=== PATIENT | male | born 1980 | race Caucasian/White ===

== ENCOUNTER 2017-12-04 19:23 | Emergency (ER) | payer SELFPAY ==
[2017-12-04 19:51] VITALS: BP 139/82; PULSE 58; RESP 20; TEMP 98.1; O2SAT 99
[2017-12-04] MEDS ORDERED: Lidocaine 1% Inj (20ml) INFIL STA (20:02)
[2017-12-04] MEDS ORDERED: Tdap Vaccine 0.5 ml Vial (10-64 yrs) IM ONE (20:02)
[2017-12-04] MEDS ORDERED: Lidocaine Hydrochloride 5 ML INJ ONE (20:10)
[2017-12-04] MEDS ORDERED: Tetanus/Diphtheria Toxoids 0.5 ml Syringe IM ONE (20:11)
--- NOTE | 2017-12-04 20:12 | C.PDOC ---
History Of Present Illness 37 year old male presents to the ED for evaluation of a laceration to his 2nd right knuckle. Patient reports he sustained his laceration 4 days ago with a broken glass. Patient burst opened a tetracycline capsule and put it in his laceration as well as an herbal plant called "epazote" to prevent infection. Patient is not up to date with his tetanus vaccination. Patient denies fever, redness, swelling or discharge from wound. Patient states he did not come sooner because he thought wound would heal, had no ride to get to hospital and was not sure if he could be treated because he has no insurance. Time Seen by Provider: 12/04/17 19:51 Chief Complaint (Nursing): Abnormal Skin Integrity History Per: Patient History/Exam Limitations: no limitations Onset/Duration Of Symptoms: Days Current Symptoms Are (Timing): Still Present Location Of Injury: Right: Hand (2nd knuckle ) Quality Of Symptoms: Painful Recent travel outside of the [place]: No Additional History Per: Patient Past Medical History Reviewed: Historical Data, Nursing Documentation, Vital Signs Vital Signs: Last Vital Signs Temp 98.1 F 12/04/17 19:46 Pulse 58 L 12/04/17 19:46 Resp 20 12/04/17 19:46 BP 139/82 12/04/17 19:46 Pulse Ox 99 12/04/17 23:27 - Medical History PMH: No Chronic Diseases Surgical History: No Surg Hx Family History: States: Unknown Family Hx - Social History Hx Alcohol Use: Yes Hx Substance Use: No - Immunization History Hx Tetanus Toxoid Vaccination: No Hx Influenza Vaccination: No Hx Pneumococcal Vaccination: No Review Of Systems Constitutional: Negative for: Fever, Chills Cardiovascular: Negative for: Chest Pain Respiratory: Negative for: Shortness of Breath Gastrointestinal: Negative for: Nausea, Vomiting Skin: Positive for: Other (laceration right second digit on hand) Neurological: Negative for: Weakness, Numbness Physical Exam - Physical Exam Appears: Non-toxic, No Acute Distress Skin: Normal Color, Warm, Other (2cm curved laceration with green flakes in wound over dorsal 2nd MCP of right hand) Head: Atraumatic, Normacephalic Eye(s): bilateral: Normal Inspection Chest: Symmetrical Extremity: Normal ROM, No Tenderness, Capillary Refill (< 2 seconds), No Deformity, No Swelling, Other (2 cm curved laceration over right 2nd knuckle ) Pulses: Right Radial: Normal Neurological/Psych: Oriented x3, Normal Speech Gait: Steady ED Course And Treatment O2 Sat by Pulse Oximetry: 99 (ON RA) Pulse Ox Interpretation: Normal Laceration - Laceration Repair 2nd right knuckle Wound Length (In cm): 2 Description Of Wound: Irregular (curved) Wound Cleansed With: Betadine Anesthesia: Lidocaine 1% Wound Examination: Irrigated With Saline (1000ml NS), No Tendon Injury With Wound Exploration, Foreign Material Removed W/Irrigation Wound Closure: Suture Suture Technique And Material Used: Interrupted (3), Nylon (4-0) Wound Complexity: Simple Medical Decision Making Medical Decision Making: Impression: 4 day old laceration Plan: * Tetanus update * Lidocaine 1% * suture repair Obtain verbal consent for suture repair. Explain to patient this is old laceration and there is risk for infection as well as scarring. Patient agreed and gave consent for repair. Area prepped with betadyne and sterile procedure followed. Wound was anesthetized with 4mL Lidocaine 1% locally. Wound was thoroughly irrigated with 1L of saline under pressure to remove all foreign material. Wound edges approximated and closed with 3 interrupted sutures using 4 -0 nylon. Bacitracin and dressing applied. I again explained to patient there is always risk of there is always a risk of undetected foreign body nerve or tendon injury, therefore the importance of close follow-up care was stressed. I advised return to ED in 2-3 days for wound check and suture removal in one week. Patient expressed understanding in Indian, and written follow up instructions also provided. Disposition Counseled Patient/Family Regarding: Diagnosis, Need For Followup - Disposition Referrals: [facility] [Outside] Disposition: HOME/ ROUTINE Disposition Time: 20:30 Condition: GOOD Additional Instructions: Retire el aderezo en 24 horas Mantenga el lyn limpia y seca. Lave suavemente con agua y jabn Cambie el aderezo 1-2 veces al da. Chequeo de heridas en 2 o 3 frias Vuelva a la tadeo de emergencias si presenta fiebre, enrojecimiento o hinchazn alrededor de la herida, pus en la herida. Retorno para la eliminacin de suturas en 7 u 8 frias Remove dressing in 24 hours Keep area clean and dry. Wash gently with soap and water Change dressing 1-2 times daily. Wound check in 2 or 3 days Return to ER if fever occurs, redness or swelling around wound, pus in the wound. 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 - Scribe Statement The provider has reviewed the documentation as recorded by the Scribe Rivas Mckeon All medical record entries made by the Scribe were at my direction and personally dictated by me. I have reviewed the chart and agree that the record accurately reflects my personal performance of the history, physical exam, medical decision making, and the department course for this patient. I have also personally directed, reviewed, and agree with the discharge instructions and disposition.
[2017-12-04] MEDS ORDERED: Bacitracin 500 Units/gm Oint Foilpak UD ONE (20:27)
== END 2017-12-04 20:57 | disposition home or self-care (01) ==
LOC: C.ER 19:23
DX: S61.411A Laceration without foreign body of right hand, initial encounter (principal); W25.XXXA Contact with sharp glass, initial encounter; Z23 Encounter for immunization